=== PATIENT | male | born 1980 | race Caucasian/White ===

== ENCOUNTER → 2018-06-01 | Outpatient (CLI) | payer BC ==
[~2018-06-01] MED LIST: IBUP-1007 PO; IBUP200T44 PO; PROP20TA PO
[2018-06-01 12:47] LABS: BASO # 0.1 x10^3/uL (0.0-0.2); BASO % 1 % (0-3); EOS # 0.1 x10^3/uL (0.0-0.7); EOS % 2 % (0-3); HEMATOCRIT 43.6 % (39.0-53.0); HEMOGLOBIN 14.6 g/dL (13.0-17.5); LYMPH # 1.6 x10^3/uL (1.0-4.8); LYMPH % 29 % (24-48); MEAN CORPUSCULAR HEMOGLOBIN 29 pg (25-35); MEAN CORPUSCULAR HGB CONC 33 g/dL (31-37); MEAN CORPUSCULAR VOLUME 87 fL (79-100); MONO # 0.3 x10^3/uL (0.0-1.1); MONO % 6 % (0-9); NEUT # 3.6 x10^3uL (1.8-7.7); NEUT % 62 % (31-73); PLATELET COUNT 246 x10^3/uL (140-400); RED BLOOD COUNT 5.01 x10^6/uL (4.30-5.70); RED CELL DISTRIBUTION WIDTH 13.7 % (11.5-14.5); WHITE BLOOD COUNT 5.7 x10^3/uL (4.0-11.0)
[2018-06-01 12:57] LABS: BARBITURATES NEG (NEG); BENZODIAZEPINES POS (NEG); CANNABINOIDS NEG (NEG); COCAINE NEG (NEG); METHADONE NEG (NEG); OPIATES NEG (NEG); PHENCYCLIDINE NEG (NEG)
[2018-06-01 12:58] LABS: AMPHETAMINE/METHAMPHETAMINE NEG (NEG)
[2018-06-01 13:04] LABS: ALBUMIN 4.1 g/dL (3.4-5.0); ALBUMIN/GLOBULIN RATIO 1.1 (1.0-1.7); CALCIUM 9.4 mg/dL (8.5-10.1); CREATININE 0.9 mg/dL (0.7-1.3); POTASSIUM 4.1 mmol/L (3.5-5.1); TOTAL BILIRUBIN 0.5 mg/dL (0.2-1.0); TOTAL PROTEIN 7.7 g/dL (6.4-8.2)
== END | disposition home or self-care (01) ==
LOC: LAB 12:21
PROVIDERS: ATTEND Psychiatry & Neurology Neurology
DX: R41.3 Other amnesia (principal); R51 Headache
CPT/HCPCS: 36415; 80053; 80307; 82607; 84443; 85025; 85651

== ENCOUNTER 2018-06-10 16:28 | Inpatient (IN) | payer BC ==
[~2018-06-10] VITALS: Ht 177.8 cm; Wt 119.9 kg
[2018-06-10] MEDS ORDERED: IV NORMAL SALINE 1000ML BAG 1,000 ML IV ONE (17:15)
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
[2018-06-10 17:26] LABS: BASO # 0.1 x10^3/uL (0.0-0.2); BASO % 1 % (0-3); EOS # 0.3 x10^3/uL (0.0-0.7); EOS % 4 % (0-3); HEMATOCRIT 41.7 % (39.0-53.0); HEMOGLOBIN 13.9 g/dL (13.0-17.5); LYMPH % 34 % (24-48); MEAN CORPUSCULAR HEMOGLOBIN 29 pg (25-35); MEAN CORPUSCULAR HGB CONC 33 g/dL (31-37); MEAN CORPUSCULAR VOLUME 88 fL (79-100); MONO # 0.4 x10^3/uL (0.0-1.1); MONO % 7 % (0-9); NEUT # 3.3 x10^3uL (1.8-7.7); NEUT % 55 % (31-73); PLATELET COUNT 224 x10^3/uL (140-400); RED BLOOD COUNT 4.76 x10^6/uL (4.30-5.70); RED CELL DISTRIBUTION WIDTH 13.5 % (11.5-14.5)
[2018-06-10] MEDS ORDERED: diphenhydrAMINE 50 MG/ML VIAL IVP ONE ×2 (17:30→19:15)
[2018-06-10 17:37] LABS: GFR 84.1; POTASSIUM 3.4 mmol/L (3.5-5.1)
[2018-06-10 17:52] LABS: ALBUMIN/GLOBULIN RATIO 1.3 (1.0-1.7); MAGNESIUM 1.9 mg/dL (1.8-2.4); TOTAL BILIRUBIN 0.5 mg/dL (0.2-1.0); TOTAL PROTEIN 7.1 g/dL (6.4-8.2)
[2018-06-10] MEDS ORDERED: DEXAMETHASONE SOD PHOS 20 MG/5 ML VIAL. IV ONE (19:15)
[2018-06-10] MEDS ORDERED: POTASSIUM CHLORIDE 20 MEQ TABLET.ER. PO ONE (19:15)
[2018-06-10] MEDS ORDERED: ACETAMINOPHEN 500 MG TABLET PO PRN ×2 (19:15)
[2018-06-10] MEDS ORDERED: ZOLPIDEM 5 MG TABLET. PO PRN (19:15)
[2018-06-10] MEDS ORDERED: ALPR1TAB6 PO (19:43)
[2018-06-10] MEDS ORDERED: HYDR25TA PO (19:43)
[2018-06-10] MEDS ORDERED: ESCITALOPRAM OX20 MG PO (19:43)
[2018-06-10] MEDS ORDERED: LISI-130 PO (19:43)
[2018-06-10] MEDS ORDERED: CARV12.511 PO (19:43)
[2018-06-10 20:02] LABS: BILIRUBIN,URINE NEGATIVE (NEG); CLARITY,URINE CLEAR; COLOR,URINE YELLOW; NITRITE,URINE NEGATIVE (NEG); PH,URINE 6.5; PROTEIN,URINE NEGATIVE (NEG-TRACE); UROBILINOGEN,URINE 0.2 mg/dL (0.2 mg/dL)
[2018-06-10 20:08] LABS: BARBITURATES NEG (NEG); BENZODIAZEPINES POS (NEG); CANNABINOIDS NEG (NEG); COCAINE NEG (NEG); METHADONE NEG (NEG); OPIATES NEG (NEG); PHENCYCLIDINE NEG (NEG)
[2018-06-10 20:15] LABS: AMPHETAMINE/METHAMPHETAMINE NEG (NEG)
[2018-06-10 20:17] LABS: BACTERIA,URINE 0 /HPF (0-FEW); SQUAMOUS EPITHELIAL CELL,UR FEW /LPF; WBC,URINE 0 /HPF (0-4)
[2018-06-10 20:20] VITALS: BP 123/83
[2018-06-10 23:39] VITALS: BP 108/54
--- NOTE | 2018-06-11 00:30 | NUR ---
Patient given 2mg of Ativan 2302 at for his stated feeling of anxiety and 'uneasiness'. Patient stated this is what he felt prior to having an 'episode' or seizure activity. Patient also given a 500mg tablet of tylenol for his headache he was also complaining of at this time. Patient's vital signs stable at this time. Patient stated he was going to get some rest. Patient called on the call-light approximately, 2340. Aide who answered call light not able to comprehend what patient needed at that time. This nurse rushed into patient's room and found him in bed trembling vigorously. Patient's eyes were closed, patient's whole body trembling. Charge nurse called into room at this time, while this nurse raised head of bed for patient. Vital signs taken at this time, Blood pressure 139/62, O2 Sat 96% RA, Heart rate 112. Episode lasted about 45secs-1min. Once patient stopped shaking, charge nurse asked patient to state his name, patient answered correctly. Patient asked to open eyes, patient stated he was unable to because they felt heavy. Charge nurse in room with patient, while this nurse paged the dr. Dr. Link paged at [phone]. No orders received at this time, and asked to page neurology. Dr. Lindsey paged. Spoke with her for a couple of minutes, went over events, patient's history, medications, daily life, current labs, and vital signs. Orders received at this time. notified of these events. Patient resting in bed at this time. No further complaints. Will continue to monitor.
[2018-06-11 03:05] VITALS: BP 118/95
[2018-06-11] MEDS: IBUPROFEN 200 MG TABLET. PO PRN (04:50)
[2018-06-11 07:00] VITALS: BP 126/94
[2018-06-11] MEDS ORDERED: THIAMINE 100 MG TABLET. PO SCH (09:00)
[2018-06-11] MEDS: ACETAMINOPHEN/CODEINE 300/30MG TABLET. PO PRN ×3 (09:38→21:35)
[2018-06-11] MEDS: PROPRANOLOL 10 MG TABLET. PO SCH (09:44)
[2018-06-11 11:03] VITALS: BP 121/91
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
[2018-06-11] MEDS: THIAMINE IM 200 MG/2 ML VIAL. IM SCH (12:49)
[2018-06-11 15:00] VITALS: BP 148/103
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
--- NOTE | 2018-06-11 17:25 | EEG ---
DATE OF SERVICE: 06/11/2018 EEG NUMBER: [id number]. OBJECTIVE: This is a 38-year-old male patient who had several seizure or seizure-like episodes on 06/10/2018. EEG was requested to help rule out seizure. METHODS: Twenty electrodes were applied according to the international 10-20 electrode placement system. EKG monitoring, hyperventilation, intermittent photic stimulation, monopolar and bipolar montages are routinely utilized. The record was obtained on a digital system with video monitoring. FINDINGS: 1. Background: The patient was recorded in the awake, drowsy, and sleep states. The overall background amplitude is 10-30 microvolts. A posterior dominant rhythm of 8-9 Hz is observed. 2. Abnormalities: No specific epileptiform discharge or electrographic seizure is seen. No focal or diffuse slowing. 3. Activation: Hyperventilation was performed with good efforts and normal response. Intermittent photic stimulation was performed with photic driving. No specific epileptiform discharge or electrographic seizure induced by hyperventilation or intermittent photic stimulation. IMPRESSION: This EEG is a normal study for the awake, drowsy, and sleep states. No focal, lateralizing, specific epileptiform discharge or electrographic seizure is seen. If the patient has further seizure or seizure-like episodes, suggest long-term detailed video EEG monitoring. ASAD SKINNER MD DR: JOSE R/franklyn JOB#: [id number] / [id number]
[2018-06-11 19:58] VITALS: BP 139/112
[2018-06-11] MEDS: TOPIRAMATE 25 MG TABLET. PO SCH (20:21)
[2018-06-11] MEDS: LISINOPRIL 20 MG TABLET PO SCH (21:31)
[2018-06-11] MEDS: ALPRAZolam 1 MG TABLET PO PRN (21:32)
[2018-06-11 23:02] VITALS: BP 156/128
[2018-06-12 03:19] VITALS: BP 123/52
[2018-06-12 07:15] VITALS: BP 138/102
[2018-06-12] MEDS: THIAMINE IM 200 MG/2 ML VIAL. IM SCH (09:00)
[2018-06-12] MEDS: CITALOPRAM 20 MG TABLET. PO SCH (09:21)
[2018-06-12] MEDS: TOPIRAMATE 25 MG TABLET. PO SCH ×2 (09:21→19:55)
[2018-06-12] MEDS: LISINOPRIL 20 MG TABLET PO SCH (09:22)
[2018-06-12] MEDS: PROPRANOLOL 10 MG TABLET. PO SCH (09:22)
[2018-06-12] MEDS: ACETAMINOPHEN/CODEINE 300/30MG TABLET. PO PRN ×2 (09:25→19:55)
[2018-06-12] MEDS: ALPRAZolam 1 MG TABLET PO PRN ×2 (10:44→19:57)
[2018-06-12] MEDS: IBUPROFEN 200 MG TABLET. PO PRN (10:44)
[2018-06-12] MEDS ORDERED: KETOROLAC 30 MG/ML VIAL. IV PRN (11:00)
[2018-06-12 11:04] VITALS: BP 159/105
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
[2018-06-12] MEDS: amLODIPine BESYLATE 5 MG TABLET PO SCH (13:35)
[2018-06-12] MEDS: KETOROLAC TROMETHAMINE 10 MG TABLET PO PRN (13:36)
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
[2018-06-12 15:13] VITALS: BP 147/121
[2018-06-12] MEDS ORDERED: FUROSEMIDE 40 MG TABLET. PO ONE (15:15)
[2018-06-12] MEDS: THIAMINE 100 MG TABLET. PO SCH (17:21)
[2018-06-12] MEDS ORDERED: cloNIDine HCL 0.1 MG TABLET PO ONE (18:15)
[2018-06-12 19:57] VITALS: BP 147/98
[2018-06-12 22:57] VITALS: BP 133/102
[2018-06-13] VITALS (7 sets, daily range): BP systolic 99–186; BP diastolic 68–141
[2018-06-13] MEDS: THIAMINE 100 MG TABLET. PO SCH (08:21)
[2018-06-13] MEDS: ACETAMINOPHEN/CODEINE 300/30MG TABLET. PO PRN ×2 (08:22→15:11)
[2018-06-13] MEDS: LISINOPRIL 20 MG TABLET PO SCH (08:22)
[2018-06-13] MEDS: CITALOPRAM 20 MG TABLET. PO SCH (08:22)
[2018-06-13] MEDS: ALPRAZolam 1 MG TABLET PO PRN ×2 (08:23→15:11)
[2018-06-13] MEDS: TOPIRAMATE 25 MG TABLET. PO SCH (08:23)
[2018-06-13] MEDS: amLODIPine BESYLATE 5 MG TABLET PO SCH (08:23)
--- NOTE | 2018-06-13 10:02 | PDOC ---
PROGRESS NOTES Assessment Problems Medical Problems: (1) Seizure-like activity Status: Acute Psychogenic nonepileptic seizures Plan Topamax 25 mg bid, increase 25 mg q week up to 50 mg bid then re-evaluate. FU with Psychiatry. Not driving x 6 months anytime after a seizure or seizure like episode with LOC subjective or objective. FU with Dr. Lindsey in 1-3 weeks, may consider LTM VEEG. Okay for discharge Subjective Feels better Objective Vital Signs Date Time Temp Pulse Resp B/P (MAP) Pulse Ox O2 Delivery O2 Flow Rate FiO2 06/13/18 08:23 63 148/106 06/13/18 08:22 95 Room Air 06/13/18 07:00 97.5 16 97.5 Intake and Output 06/13/18 07:01 Intake Total 3180 ml Balance 3180 ml Intake Oral 3180 ml # Voids 7 PHYSICAL EXAM Alert. Oriented to time, place and person. PERRL. EOMI. CN: no focal findings. Muscle tone: normal. Muscle strength: 5/5 DTR: 2+ Plantar reflex: flexor Gait: not examined in bed. Sensory exam: no abnormal findings. No cerebellar signs elicited. Review of Relevant I have reviewed the following items justine (where applicable) has been applied. Labs Laboratory Tests Test 06/11/18 12:07 Creatine Kinase 49 U/L ([id number]) Medications Current Medications Sodium Chloride 1,000 ml @ 1,000 mls/hr 1X ONCE IV Last administered on at 17:23; Start 06/10/18 at 17:15; Stop 06/10/18 at 18:14; Status DC Diphenhydramine HCl (Benadryl) 12.5 mg 1X ONCE IVP Last administered on at 17:23; Start 06/10/18 at 17:30; Stop 06/10/18 at 17:31; Status DC Lorazepam (Ativan) 2 mg PRN Q4HRS PRN IV ANXIETY / AGITATION Last administered on 06/10/18at 23:02; Start 06/10/18 at 19:15; Stop 06/12/18 at 10:47; Status DC Zolpidem Tartrate (Ambien) 5 mg PRN QHS PRN PO INSOMNIA; Start 06/10/18 at 19:15 Acetaminophen (Tylenol) 500 mg PRN Q6HRS PRN PO MILD PAIN / TEMP Last administered on 06/10/18 23:02; Start 06/10/18 at 19:15 Acetaminophen/ Codeine Phosphate (Tylenol #3) 1 tab PRN Q6HRS PRN PO MODERATE PAIN Last administered on 06/13/18 08:22; Start 06/10/18 at 19:15 Ibuprofen (Motrin) 600 mg PRN Q6HRS PRN PO INFLAMMATION Last administered on 04:50; Start 06/10/18 at 19:15; Stop 06/12/18 at 11:10; Status DC Diphenhydramine HCl (Benadryl) 12.5 mg 1X ONCE IVP Last administered on 19:44; Start 06/10/18 at 19:15; Stop 06/10/18 at 19:16; Status DC Dexamethasone Sodium Phosphate (Decadron) 10 mg 1X ONCE IV Last administered on 06/10/18 19:44; Start 06/10/18 at 19:15; Stop 06/10/18 at 19:16; Status DC Propranolol HCl (Inderal) 20 mg DAILY PO Last administered on 06/12/18 09:22; Start 06/11/18 at 09:00; Stop 06/12/18 at 12:37; Status DC Potassium Chloride (Klor-Con) 40 meq 1X ONCE PO Last administered on 06/10/18 19:44; Start 06/10/18 at 19:15; Stop 06/10/18 at 19:16; Status DC Acetaminophen (Tylenol) 1,000 mg PRN Q4HRS PRN PO FEVER/HEADACHE; Start at 19:15; Stop 06/11/18 at 19:14; Status DC Thiamine Mononitrate (Vitamin B-1) 100 mg DAILY PO Last administered on 09:38; Start 06/11/18 at 09:00; Stop 06/11/18 at 11:19; Status DC Lorazepam (Ativan) 1 mg PRN Q3HRS PRN IV MODERATE TREMORS; Start 06/11/18 at 00: 15 Lorazepam (Ativan) 2 mg PRN Q3HRS PRN IV SEVERE TREMORS; Start 06/11/18 at 00:45 Thiamine HCl 100 mg DAILY IM Last administered on 06/11/18 12:49; Start at 12:00; Stop 06/12/18 at 15:19; Status DC Topiramate (Topamax) 25 mg BID PO Last administered on 06/13/18 08:23; Start at 21:00 Alprazolam (Xanax) 1 mg PRN Q6HRS PRN PO ANXIETY / AGITATION Last administered on 06/13/18 08:23; Start 06/11/18 at 20:45 Lisinopril (Prinivil) 40 mg DAILY PO Last administered on 06/13/18 08:22; Start 06/11/18 at 21:00 Citalopram Hydrobromide (CeleXA) 40 mg DAILY PO Last administered on 06/13/18 08:22; Start 06/12/18 at 09:00 Ketorolac Tromethamine (Toradol 30mg Vial) 30 mg PRN Q6HRS PRN IV MODERATE PAIN Last administered on 06/12/18 11:36; Start 06/12/18 at 11:00; Stop 06/12/18 at 11:58; Status DC Ketorolac Tromethamine (Toradol) 10 mg PRN Q6HRS PRN PO MILD PAIN Last administered on 06/12/18 13:36; Start 06/12/18 at 12:00; Stop 06/17/18 at 11:59 Amlodipine Besylate (Norvasc) 5 mg DAILY PO Last administered on 06/13/18 08:23 ; Start 06/12/18 at 13:00 Furosemide (Lasix) 40 mg 1X ONCE PO Last administered on 06/12/18 15:30; Start 06/12/18 at 15:15; Stop 06/12/18 at 15:16; Status DC Thiamine Mononitrate (Vitamin B-1) 100 mg DAILY PO Last administered on 08:21; Start 06/12/18 at 16:00 Clonidine HCl (Catapres) 0.1 mg 1X ONCE PO Last administered on 06/12/18 18:25 ; Start 06/12/18 at 18:15; Stop 06/12/18 at 18:16; Status DC Furosemide (Lasix) 40 mg 1X ONCE PO ; Start 06/13/18 at 10:30; Stop 06/13/18 at 10:31 Active Scripts Active Reported Alprazolam 1 Mg Tablet 1 Mg PO PRN Q6HRS PRN Hydroxyzine Hcl 25 Mg Tablet 50 Mg PO PRN TID PRN Carvedilol (Carvedilol) 12.5 Mg Tablet 12.5 Mg PO BIDWMEALS Escitalopram Oxalate 20 Mg Tablet 20 Mg PO DAILY Lisinopril 40 Mg Tablet 40 Mg PO DAILY Vitals/I & O Vital Sign - Last 24 Hours 06/12/18 06/12/18 06/12/18 06/12/18 10:51 11:04 13:35 15:13 Temp 98.0 97.3 98.0 97.3 Pulse 123 123 128 Resp 18 19 B/P (MAP) 159/105 (123) 159/105 147/121 (130) Pulse Ox 98 97 O2 Delivery Room Air Room Air Room Air 06/12/18 06/12/18 06/12/18 06/12/18 18:25 19:57 20:00 22:57 Temp 98.3 97.9 98.3 97.9 Pulse 128 73 78 Resp 16 16 B/P (MAP) 147/121 147/98 (114) 133/102 (112) Pulse Ox 98 98 O2 Delivery Room Air Room Air Room Air 06/13/18 06/13/18 06/13/18 06/13/18 03:20 07:00 08:22 08:22 Temp 97.7 97.5 97.7 97.5 Pulse 77 63 63 Resp 16 16 B/P (MAP) 113/81 (92) 148/106 (120) 148/106 Pulse Ox 94 95 95 O2 Delivery Room Air Room Air Room Air 06/13/18 08:23 Pulse 63 B/P (MAP) 148/106 Intake and Output 06/12/18 06/12/18 06/13/18 15:01 23:01 07:01 Intake Total 880 ml 1800 ml 500 ml Balance 880 ml 1800 ml 500 ml SAMEER MARISCAL MD Jun 13, 2018 10:02
[2018-06-13] MEDS ORDERED: FUROSEMIDE 40 MG TABLET. PO ONE (10:30)
--- NOTE | 2018-06-13 11:37 | NUR ---
Pt did not DC home yesterday day due to BP being too high. we are currently working on bringing down the BP with medications and diuresis. Per CM, canceling discharge from 06/12/18.. if pt has a more stable BP after 2 pm today then pt can be discharged home. Jeremiah Morris RN
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
--- NOTE | 2018-06-13 12:18 | NUR ---
SW following pt for anticipated dc needs. Chart reviewed and DW RN. Pt lives at home with family/spouse and is on Room air. Per RN, pt's BP has been high but no SW needs indicated at this time. SW will be available for any dc needs.
[2018-06-13] MEDS ORDERED: cloNIDine HCL 0.2 MG TABLET PO ONE (15:45)
[2018-06-13] MEDS ORDERED: ONDANSETRON ODT 4 MG TAB.RAPDIS. PO ONE (18:45)
[2018-06-13] MEDS ORDERED: FURO-69 PO (20:12)
[2018-06-13] MEDS ORDERED: ACET-704 PO (20:14)
[2018-06-13] MEDS ORDERED: AMLO5TAB4 PO (20:14)
[2018-06-13] MEDS ORDERED: KETO10TA PO (20:17)
[2018-06-13] MEDS ORDERED: TOPI25TA52 PO (20:18)
--- NOTE | 2018-06-13 20:30 | NUR ---
Patient discharged at 2030. This nurse went over discharge paperwork with patient, along with followups and medications. Patient given prescriptions for medication. All of belongings returned to patient. Room checked to ensure patient had all belongings. Patient's vital signs including blood pressure stable at this time. Patient taken to main entrance by staff, where family waited.
[2018-06-13] MEDS: KETOROLAC TROMETHAMINE 10 MG TABLET PO PRN (20:31)
--- NOTE | 2018-06-15 11:19 | DS ---
DATE OF DISCHARGE: 06/13/2018 ADMISSION DIAGNOSIS: Seizure activity. DISCHARGE DIAGNOSIS: Resolving seizure activity, suspect possible pseudoseizures, but we are not quite sure. HOSPITAL COURSE: The patient is a pleasant 38-year-old male who presented with seizure-like activity. He is under a lot of stress at home. He states he loves his job, but states that the "general ." He was admitted. We consulted Neurology and in fact he is already seen Neurology in the recent past and they were considering that he might have seizure disorder. During this admission, he actually had the seizure while in an MRI machine trying to be evaluated for seizure disorder as an outpatient. Once again the patient had some seizure activity here in the hospital, but we are still concerned that this could be pseudoseizures. He just has an unusual affect. He really does not urinate on himself. His CPK level stayed within normal limits. He did not have any fevers. He did have a little bit of tachycardia and it appeared he gently bit the tip of his tongue, I am not sure if that was self-induced. Overall, the patient did well. Neurology has put him on Topamax, just to be safe. He is clinically stable. He did have some blood pressure issues, we got that down. We are going to go ahead and discharge with close outpatient followup. DISPOSITION: Home. ACTIVITY: As tolerated. DIET: Low sodium. MEDICATIONS: Please see the MRAD. TOTAL TIME: 36 minutes. BRAN BELLA DO DR: AURA/franklyn JOB#: [id number] / [id number]
== END 2018-06-13 20:30 | disposition home or self-care (01) | DRG 101 ==
LOC: ER 16:28 → 6 SOUTH 18:45
PROVIDERS: ADMIT Internal Medicine; ATTEND Internal Medicine
DX: G40.909 Epilepsy, unspecified, not intractable, without status epilepticus (principal); E66.9 Obesity, unspecified; F41.9 Anxiety disorder, unspecified; I10 Essential (primary) hypertension; F32.9 Major depressive disorder, single episode, unspecified; Z82.49 Family history of ischemic heart disease and other diseases of the circulatory system; Z79.899 Other long term (current) drug therapy; Z88.8 Allergy status to other drugs, medicaments and biological substances; Z68.37 Body mass index [BMI] 37.0-37.9, adult
CPT/HCPCS: 36415; 70553; 80053; 80307; 81001; 82550; 82962; 83605; 83735; 85025; 93005; 95816; 96361; 96374; 96375; A9585; G0480; J1100; J1200; J1885; J2060; J7030; Q0162; 99285-25; G0378